=== PATIENT | female | born 1995 | race Two or more races ===

== ENCOUNTER 2016-11-14 12:33 | Emergency (ER) | payer SELFPAY ==
[~2016-11-14] VITALS: Ht 167.6 cm; Wt 86.2 kg
[2016-11-14 13:10] VITALS: BP 110/89
[2016-11-14] MEDS ORDERED: ONDANSETRON HCL 4 MG/2 ML VIAL IM ONE (14:00)
== END 2016-11-14 14:34 | disposition home or self-care (01) ==
LOC: ER 12:43
DX: N39.0 Urinary tract infection, site not specified (principal); K29.00 Acute gastritis without bleeding
CPT/HCPCS: 81025; 96372; 99283; J2405